=== PATIENT | female | born 1980 | race African-American/Black ===

== ENCOUNTER 2018-06-13 13:52 | Inpatient (IN) | payer OTHER ==
[2018-06-13] MEDS ORDERED: DOCUSATE SODIUM 100 MG CAP PO (16:00)
[2018-06-13] MEDS ORDERED: VANCOMYCIN IV PER PHARMACY XX (16:00)
[2018-06-13] MEDS ORDERED: ACETAMINOPHEN 325 MG TAB PO (16:00)
[2018-06-13] MEDS ORDERED: ONDANSETRON 4 MG TAB PO (16:00)
[2018-06-13] MEDS: SOD CHLORIDE 0.9% 1,000 ML IV (16:37)
[2018-06-13] MEDS: VANCOMYCIN 2 GM in SOD CHLORIDE 0.9% 500 ML IVPB (16:37)
[2018-06-13 17:07] LABS: CREATINE KINASE 52 IU/L (23-200)
[2018-06-13] MEDS: BENZOCAINE 20% 0.33 OZ. GEL TOP ×2 (18:00→21:00)
[2018-06-13 19:41] LABS: BLOOD UREA NITROGEN 8 mg/dl (7-20)
[2018-06-13] MEDS ORDERED: BENZOCAINE 10% 7 GM GEL MM (21:00)
[2018-06-13] MEDS: DIPHENHYDRAMINE 50 MG INJ IV (22:41)
[2018-06-14] MEDS: VANCOMYCIN 1.5 GM in SOD CHLORIDE 0.9% 250 ML IVPB ×2 (05:01→20:08)
[2018-06-14] MEDS: DIPHENHYDRAMINE 50 MG INJ IV ×3 (05:02→20:01)
[2018-06-14] MEDS: PANTOPRAZOLE (EC) 40 MG TAB PO (05:02)
[2018-06-14] MEDS: SOD CHLORIDE 0.9% 1,000 ML IV (05:13)
[2018-06-14 05:46] LABS: ADD MAN DIFF? NO
[2018-06-14 05:57] LABS: BASOPHILS % 0.2 % (0.0-2.0); EOSINOPHILS % 0.4 % (0.0-7.0); HEMATOCRIT 33.1 % (37.0-47.0); HEMOGLOBIN 10.7 g/dl (12.0-16.0); LYMPHOCYTES # 3.1 10^3/ul (0.8-2.9); LYMPHOCYTES % 30.8 % (15.0-51.0); MEAN CORPUSCULAR HEMOGLOBIN 30.7 pg (29.0-33.0); MEAN CORPUSCULAR HGB CONC 32.3 g/dl (32.0-37.0); MEAN CORPUSCULAR VOLUME 94.8 fl (82.0-101.0); MONOCYTE # 0.8 10^3/ul (0.3-0.9); MONOCYTES % 7.6 % (0.0-11.0); NEUTROPHIL # 6.1 10^3/ul (1.6-7.5); NEUTROPHILS % 60.6 % (39.0-77.0); PLATELET COUNT 243 10^3/UL (140-415); RED BLOOD COUNT 3.49 10^6/ul (4.20-5.40); RED CELL DISTRIBUTION WIDTH 12.5 % (11.5-14.5)
[2018-06-14 06:15] LABS: ANION GAP 7 (5-13); BLOOD UREA NITROGEN 9 mg/dl (7-20); CALCIUM 8.8 mg/dl (8.4-10.2); CARBON DIOXIDE 22 mmol/L (21-31); CHLORIDE 112 mmol/L (97-110); CREATININE 0.66 mg/dl (0.44-1.00); Estimated GFR > 60 mL/min (>60); GLUCOSE 97 mg/dl (70-220); POTASSIUM 3.7 mmol/L (3.5-5.1); SODIUM 141 mmol/L (135-144)
[2018-06-14] MEDS: BENZOCAINE 20% 0.33 OZ. GEL TOP ×3 (09:00→21:00)
[2018-06-14] MEDS: ENOXAPARIN 40 MG/0.4 ML SYG SC (09:00)
[2018-06-15] MEDS: DIPHENHYDRAMINE 50 MG INJ IV ×2 (02:27→14:28)
[2018-06-15] MEDS: SOD CHLORIDE 0.9% 1,000 ML IV ×2 (02:29→10:52)
[2018-06-15] MEDS: HYDROCODONE/APAP (5/325) TAB PO ×2 (03:17→13:22)
[2018-06-15 05:51] LABS: VANCOMYCIN,TROUGH 13.6 ug/ml (10.0-20.0)
[2018-06-15] MEDS: PANTOPRAZOLE (EC) 40 MG TAB PO (06:24)
[2018-06-15] MEDS: VANCOMYCIN 1.5 GM in SOD CHLORIDE 0.9% 250 ML IVPB (06:24)
[2018-06-15] MEDS: ENOXAPARIN 40 MG/0.4 ML SYG SC (09:00)
[2018-06-15] MEDS: BENZOCAINE 20% 0.33 OZ. GEL TOP ×2 (09:00→13:00)
[2018-06-15] MEDS: NACL 0.9% 3 ML SYG IV (11:58)
== END 2018-06-15 16:02 | disposition home or self-care (01) | DRG 607 ==
LOC: PP2 13:52
PROVIDERS: Internal Medicine
DX: S80.862A Insect bite (nonvenomous), left lower leg, initial encounter (principal); L03.116 Cellulitis of left lower limb; W57.XXXA Bitten or stung by nonvenomous insect and other nonvenomous arthropods, initial encounter; F41.9 Anxiety disorder, unspecified; F32.9 Major depressive disorder, single episode, unspecified; I83.90 Asymptomatic varicose veins of unspecified lower extremity; K13.79 Other lesions of oral mucosa; E66.9 Obesity, unspecified; Z68.38 Body mass index [BMI] 38.0-38.9, adult
CPT/HCPCS: 80048; 80202; 82550; 82565; 84520; 85025